=== PATIENT | female | born 1955 | race Caucasian/White ===

== ENCOUNTER 2022-06-23 01:36 | Inpatient (IN) | payer MEDICARE, MEDICAID ==
[~2022-06-23] VITALS: Ht 160 cm; Wt 109.0 kg
[2022-06-23] VITALS (75 sets, daily range): BP systolic 73–210; BP diastolic 47–147
[2022-06-23 01:59] LABS: BASO% 0.3 % (0-3); HEMATOCRIT 49.4 % (37.0-47.0); HEMOGLOBIN 15.5 g/dl (12.0-16.0); IMMATURE GRANULOCYTES 0.3 % (0.0-5.0); LYMPH% 23.5 % (15-41); MEAN CELL VOLUME 90.8 fL CALC (80.0-100.0); MEAN CORPUSCULAR HGB 28.5 pG CALC (26.0-32.0); MEAN CORPUSCULAR HGB CONC 31.4 g/dL CAL (32.0-36.0); MONO% 4.5 % (2-13); NEUT# 10.58 thou/uL (2.00-7.15); NEUT% 71.4 % (42-76); RED BLOOD COUNT 5.44 mill/uL (4.20-5.60); RED CELL DISTRI WIDTH 16.6 % (11.5-15.5)
[2022-06-23 02:16] LABS: ALBUMIN 4.4 g/dL (3.2-5.0); ALKALINE PHOSPHATASE 104 u/l (38-126); ANION GAP 15 (6-22 (CALC)); BILIRUBIN, TOTAL 0.4 mg/dL (0.02-1.3); BUN 38 mg/dL (8-23); BUN/CREATININE RATIO 26 (12-20 (CALC)); CARBON DIOXIDE 26 mmol/l (22-30); CHLORIDE 102 mmol/l (95-108); CREATININE 1.5 mg/dL (0.5-1.0); GFR FOR AFR.AMER. 42 ML/MIN (>=60 (CALC)); GFR OTHER RACES 35 ML/MIN (>=60 (CALC)); POTASSIUM 4.3 mmol/l (3.5-5.1); SGOT/AST 48 u/l (9-36); SODIUM 139 mmol/l (137-146); TOTAL PROTEIN 8.2 g/dL (6.3-8.2)
[2022-06-23] MEDS ORDERED: ATORVASTATIN CA20 MG PO (02:31)
[2022-06-23] MEDS ORDERED: LISINOPRIL20 M1 PO (02:32)
[2022-06-23] MEDS ORDERED: LORTAB 1010 MG PO (02:33)
[2022-06-23] MEDS ORDERED: LEVOTHROID125 MCG PO (02:34)
[2022-06-23 03:49] LABS: URINE BILIRUBIN - DIPSTICK NEGATIVE (NEGATIVE); URINE COLOR YELLOW; URINE GLUCOSE - DIPSTICK NEGATIVE (NEGATIVE); URINE KETONE NEGATIVE (NEGATIVE); URINE PROTEIN - DIPSTICK 30 mg/dL (NEG-TRACE); URINE UROBILINOGEN - DIPSTICK 0.2 E.U./dL (0.2)
[2022-06-23 03:50] LABS: URINE BLOOD DIPSTICK NEGATIVE (NEGATIVE); URINE LEUK ESTERASE MODERATE (NEGATIVE); URINE NITRITE - DIPSTICK POSITIVE (Negative)
[2022-06-23 03:56] LABS: URINE BACTERIA MODERATE hpf; URINE EPITHELIAL CELLS MODERATE EPI/hpf (0-FEW); URINE WBC >100 WBC/hpf (0-5)
[2022-06-24] VITALS (11 sets, daily range): BP systolic 94–145; BP diastolic 47–80
[2022-06-24 05:31] LABS: MEAN CELL VOLUME 91.4 fL CALC (80.0-100.0); MEAN CORPUSCULAR HGB 28.7 pG CALC (26.0-32.0); MEAN CORPUSCULAR HGB CONC 31.4 g/dL CAL (32.0-36.0); RED BLOOD COUNT 4.42 mill/uL (4.20-5.60); RED CELL DISTRI WIDTH 16.5 % (11.5-15.5)
[2022-06-24 05:34] LABS: HEMATOCRIT 40.4 % (37.0-47.0); HEMOGLOBIN 12.7 g/dl (12.0-16.0)
[2022-06-24 05:45] LABS: ALBUMIN 3.6 g/dL (3.2-5.0); ALKALINE PHOSPHATASE 81 u/l (38-126); ANION GAP 12 (6-22 (CALC)); BUN 25 mg/dL (8-23); BUN/CREATININE RATIO 26 (12-20 (CALC)); CARBON DIOXIDE 24 mmol/l (22-30); CHLORIDE 105 mmol/l (95-108); GFR FOR AFR.AMER. > 60 ML/MIN (>=60 (CALC)); GFR OTHER RACES 55 ML/MIN (>=60 (CALC)); MAGNESIUM 2.2 mg/dL (1.6-2.3); POTASSIUM 4.7 mmol/l (3.5-5.1); SGOT/AST 30 u/l (9-36); SODIUM 137 mmol/l (137-146); TOTAL PROTEIN 6.6 g/dL (6.3-8.2)
[2022-06-24] MEDS ORDERED: ZPAK PO (09:47)
[2022-06-24] MEDS ORDERED: MEDDOSEPAK PO (09:47)
[2022-06-24] MEDS ORDERED: VENTOLIN HFA IN (10:03)
== END 2022-06-24 10:30 | disposition home or self-care (01) | DRG 192 ==
LOC: ED 01:36 → ED-I 02:20 → ED 02:49 → ICU 02:50
PROVIDERS: Emergency Medicine; ADMIT Internal Medicine; ATTEND Internal Medicine
PROC: 5A09357 Assistance with Respiratory Ventilation, Less than 24 Consecutive Hours, Continuous Positive Airway Pressure (ICD-10-PCS; principal; 2022-06-23)
DX: J44.1 Chronic obstructive pulmonary disease with (acute) exacerbation (principal); R09.02 Hypoxemia; R06.89 Other abnormalities of breathing; I10 Essential (primary) hypertension; F17.200 Nicotine dependence, unspecified, uncomplicated; Z96.643 Presence of artificial hip joint, bilateral; Z20.822 Contact with and (suspected) exposure to COVID-19
CPT/HCPCS: J1650; Q9967

== ENCOUNTER 2023-03-09 21:46 | Observation (INO) | payer MEDICARE, MEDICAID ==
[~2023-03-09] VITALS: Ht 160 cm; Wt 120.6 kg
[2023-03-09] VITALS (8 sets, daily range): BP systolic 120–161; BP diastolic 59–80
[~2023-03-09 21:46] MED LIST: ATORVASTATIN CA20 MG PO; LEVOTHROID125 MCG PO; LISINOPRIL20 M1 PO; LORTAB 1010 MG PO; MEDDOSEPAK PO; VENTOLIN HFA IN; ZPAK PO
[2023-03-09 22:34] LABS: BASO% 0.4 % (0-3); HEMATOCRIT 45.4 % (37.0-47.0); IMMATURE GRANULOCYTES 0.2 % (0.0-5.0); LYMPH% 27.1 % (15-41); MEAN CELL VOLUME 94.2 fL CALC (80.0-100.0); MEAN CORPUSCULAR HGB CONC 30.8 g/dL CAL (32.0-36.0); MONO% 5.2 % (2-13); NEUT# 6.99 thou/uL (2.00-7.15); NEUT% 67.1 % (42-76); RED BLOOD COUNT 4.82 mill/uL (4.20-5.60); RED CELL DISTRI WIDTH 16.5 % (11.5-15.5)
[2023-03-09 23:08] LABS: D-DIMER 2.05 mg/L (0.19-0.60)
[2023-03-09 23:13] LABS: INTERNATIONAL NORMALIZED RATIO 1.1 RATIO (0.7-1.3); PROTHROMBIN TIME 10.1 SECONDS (9.0-12.5)
[2023-03-09 23:22] LABS: ALBUMIN 3.9 g/dL (3.2-5.0); ALKALINE PHOSPHATASE 98 u/l (38-126); BUN 16 mg/dL (8-23); BUN/CREATININE RATIO 16 (12-20 (CALC)); CHLORIDE 102 mmol/l (95-108); GFR FOR AFR.AMER. > 60 ML/MIN (>=60 (CALC)); GFR OTHER RACES 55 ML/MIN (>=60 (CALC)); POTASSIUM 4.1 mmol/l (3.5-5.1); SGOT/AST 32 u/l (9-36); SODIUM 139 mmol/l (137-146); TOTAL PROTEIN 6.7 g/dL (6.3-8.2)
[2023-03-09 23:26] LABS: ANION GAP 8 (6-22 (CALC)); BILIRUBIN, TOTAL 0.4 mg/dL (0.02-1.3); CARBON DIOXIDE 33 mmol/l (22-30)
[2023-03-10] VITALS (21 sets, daily range): BP systolic 102–133; BP diastolic 41–90
[2023-03-10 02:29] LABS: URINE BILIRUBIN - DIPSTICK Negative (NEGATIVE); URINE BLOOD DIPSTICK Trace-intact (NEGATIVE); URINE GLUCOSE - DIPSTICK Negative (NEGATIVE); URINE KETONE Negative (NEGATIVE); URINE PROTEIN - DIPSTICK Trace mg/dL (NEG-TRACE); URINE SPECIFIC GRAVITY 1.015; URINE UROBILINOGEN - DIPSTICK 0.2 E.U./dL (0.2)
[2023-03-10 02:31] LABS: URINE COLOR Yellow; URINE LEUK ESTERASE Small (NEGATIVE); URINE NITRITE - DIPSTICK Positive (Negative)
[2023-03-10 02:36] LABS: URINE BACTERIA MANY hpf; URINE SQUAMOUS EPITHELIAL CELL FEW EPI/hpf (0-FEW)
[2023-03-10] MEDS ORDERED: LORTAB 1010 MG PO (11:23)
[2023-03-10] MEDS ORDERED: ZITHROMAX250 MG PO (16:01)
[2023-03-10] MEDS ORDERED: OMNICEF300 MG PO (16:01)
[2023-03-10] MEDS ORDERED: PREDNISONE20 MG PO (16:03)
[2023-03-10] MEDS ORDERED: IBUPROFEN600 MG PO (18:16)
== END 2023-03-10 19:00 | disposition home or self-care (01) ==
LOC: ED 21:46 → ED-I 03-10 03:30 → ED 03-10 04:13 → MS2 03-10 04:14
PROVIDERS: Emergency Medicine; ADMIT Student in an Organized Health Care Education/Training Program; ATTEND Student in an Organized Health Care Education/Training Program
DX: J44.1 Chronic obstructive pulmonary disease with (acute) exacerbation (principal); I11.0 Hypertensive heart disease with heart failure; I50.9 Heart failure, unspecified; N39.0 Urinary tract infection, site not specified; I89.0 Lymphedema, not elsewhere classified; I87.8 Other specified disorders of veins; E03.9 Hypothyroidism, unspecified; Z91.128 Patient's intentional underdosing of medication regimen for other reason; F17.200 Nicotine dependence, unspecified, uncomplicated; T50.1X6A Underdosing of loop [high-ceiling] diuretics, initial encounter; Z99.3 Dependence on wheelchair; Z96.643 Presence of artificial hip joint, bilateral; Z20.822 Contact with and (suspected) exposure to COVID-19
CPT/HCPCS: Q9967

== ENCOUNTER 2023-09-09 13:17 | Inpatient (IN) | payer MEDICARE, MEDICAID ==
[~2023-09-09] VITALS: Ht 160 cm; Wt 130.2 kg
[2023-09-09] VITALS (26 sets, daily range): BP systolic 101–198; BP diastolic 58–122
[~2023-09-09 13:17] MED LIST changes: +IBUPROFEN600 MG PO; +OMNICEF300 MG PO; +PREDNISONE20 MG PO; +ZITHROMAX250 MG PO
--- NOTE | 2023-09-09 13:17 | NUR ---
PATIENT TO ER ROOM 13 VIA EMS. MD AT BEDSIDE.
[2023-09-09] MEDS ORDERED: AZITHROMYCIN 500 MG in SODIUM CHLORIDE 0.9% 250 ML IV ONE (13:30)
[2023-09-09] MEDS ORDERED: IPRATROPIUM-Albuterol 0.5MG-2.5MG/3 ML NEB ONE ×2 (13:30)
[2023-09-09] MEDS ORDERED: methylPREDNISolone SODIUM SUCC 125 MG/2 ML SDV IV ONE (13:30)
[2023-09-09] MEDS ORDERED: cefTRIAXone SODIUM 2 GM in SODIUM CHLORIDE 0.9% 100 ML IV ONE (13:30)
[2023-09-09 13:57] LABS: BASO% 0.4 % (0-3); HEMATOCRIT 46.1 % (37.0-47.0); HEMOGLOBIN 13.6 g/dl (12.0-16.0); IMMATURE GRANULOCYTES 0.8 % (0.0-5.0); LYMPH% 23.1 % (15-41); MEAN CORPUSCULAR HGB CONC 29.5 g/dL CAL (32.0-36.0); MONO% 4.5 % (2-13); NEUT# 6.84 thou/uL (2.00-7.15); NEUT% 71.2 % (42-76); RED BLOOD COUNT 4.54 mill/uL (4.20-5.60); RED CELL DISTRI WIDTH 17.1 % (11.5-15.5)
[2023-09-09 13:58] LABS: MEAN CELL VOLUME 101.5 fL CALC (80.0-100.0)
[2023-09-09 14:36] LABS: INTERNATIONAL NORMALIZED RATIO 1.1 RATIO (0.7-1.3)
[2023-09-09 14:37] LABS: ALBUMIN 4.1 g/dL (3.2-5.0); MAGNESIUM 2.5 mg/dL (1.6-2.3); POTASSIUM 4.7 mmol/l (3.5-5.1); TOTAL PROTEIN 7.8 g/dL (6.3-8.2)
[2023-09-09 14:40] LABS: BILIRUBIN, TOTAL 0.6 mg/dL (0.02-1.3)
[2023-09-09 14:45] LABS: PROTHROMBIN TIME 10.4 SECONDS (9.0-12.5)
[2023-09-09 15:25] LABS: URINE BILIRUBIN - DIPSTICK Negative (NEGATIVE); URINE BLOOD DIPSTICK Moderate (NEGATIVE); URINE GLUCOSE - DIPSTICK Negative (NEGATIVE); URINE KETONE Negative (NEGATIVE); URINE LEUK ESTERASE Negative (NEGATIVE); URINE PH 5.5 (4.5-8.0); URINE PROTEIN - DIPSTICK >=300 mg/dL (NEG-TRACE); URINE SPECIFIC GRAVITY >=1.030; URINE UROBILINOGEN - DIPSTICK 0.2 E.U./dL (0.2)
[2023-09-09 15:26] LABS: URINE COLOR Yellow; URINE NITRITE - DIPSTICK Positive (Negative)
[2023-09-09 15:32] LABS: URINE BACTERIA MANY hpf; URINE SQUAMOUS EPITHELIAL CELL FEW EPI/hpf (0-FEW)
[2023-09-09] MEDS ORDERED: SODIUM CHLORIDE 0.9% 1,000 ML IV PRN (15:55)
[2023-09-09] MEDS ORDERED: ACETAMINOPHEN 325 MG/TAB PO PRN (15:55)
[2023-09-09] MEDS ORDERED: MAGNESIUM HYDROXIDE 30 ML UDC PO PRN (15:55)
[2023-09-09] MEDS ORDERED: FUROSEMIDE 40 MG/4 ML SDV IV SCH (15:57)
[2023-09-09] MEDS ORDERED: HYDROcodone 5 MG/Acetaminophen 325 MG/COMBO PO PRN (16:00)
--- NOTE | 2023-09-09 16:00 | NUR ---
PATIENT TRANSFERED TO 15 TO REGULAR BED.
--- NOTE | 2023-09-09 16:00 | NUR ---
PATIENT RECEIVED BY ICU NURSE. MOVED TO ER ROOM 15. SHE IS NOTED ON BIPAP AT THIS TIME. SHE IS A/O X3. VSS AT THIS TIME. SHE WAS GIVEN A COMPLETE BED BATH & LINEN CHANGE. LUNGS DIMINISHED THROUGHOUT. BOWEL SOUNDS ACTIVE IN ALL FOUR QUADS. ANSARCA EDEMA NOTED. ROMY AREA NOTED ESCORIATED; PUREWICK PLACED ON PATIENT. SHE IS UNABLE TO WEAR SCDS AT THIS TIME DUE TO PAIN AND SWELLING IN BLE. HER IV WAS DISLODGED WHILE MOVING TO REGULAR BED. IV CHANGED. SHE ATE 100% OF DINNER. BED LOCKED IN LOW POSITION. CALL LIGHT WITHIN REACH.
[2023-09-09] MEDS ORDERED: ALPRAZolam 0.25 MG PO PRN (17:50)
[2023-09-09] MEDS ORDERED: hydrALAZINE HCL 20 MG/ML VIAL(1 ML) IV PRN (17:50)
--- NOTE | 2023-09-09 18:00 | NUR ---
PATIENT LYING IN BED WITH NO ACUTE DISTRESS NOTED AT THIS TIME.
[2023-09-09] MEDS ORDERED: ALPRAZOLAM0.25 MG PO (18:08)
[2023-09-09] MEDS ORDERED: GABAPENTIN100 MG PO (18:08)
[2023-09-09] MEDS ORDERED: HYDROCHLOROT12.5 M1 PO (18:09)
[2023-09-09] MEDS ORDERED: IPRATROPIUM-Albuterol 0.5MG-2.5MG/3 ML NEB SCH (19:00)
--- NOTE | 2023-09-09 20:00 | NUR ---
PATIENT'S FRIEND MAKAYLA AND HER ROOMMATE CAME TO VISIT. THE PATIENT IS RESTING IN BED ON BIPAP WITH EYES CLOSED. VITAL SIGNS STABLE. FRIEND MAKAYLA IS LISTED EMERGENCY CONTACT AND EXPRESSED CONCERNED ABOUT THE PATIENT RETURNING HOME SHE HAS NOT BEEN ABLE TO CARE FOR HERSELF IN THE PAST FEW MONTHS AND IS EAGER TO SPEAK WITH CASE MANAGEMENT ABOUT HER CONCERNS FOR THE PAITENT'S DISCHARGE NEEDS/PLANNING.
[2023-09-09] MEDS ORDERED: ATORVASTATIN CALCIUM 10 MG/TAB PO SCH (21:00)
[2023-09-09] MEDS ORDERED: ENOXAPARIN SODIUM 40 MG/0.4 ML SYR SC SCH (21:00)
[2023-09-09] MEDS ORDERED: GABAPENTIN 100 MG/CAP PO SCH (21:00)
--- NOTE | 2023-09-09 21:30 | NUR ---
PATIENT BECAME OBTUNDED AND DIFFICULT TO AROUSE. PATIENT'S HEART RATE REPEATEDLY DROPPED INTO THE 30s. ABG WAS DRAWN BY RESPIRATORY THERAPIST AND DR. TRAN WAS CALLED AND NEW ORDERS WERE ENTERED.
[2023-09-09] MEDS ORDERED: ATROPINE SULFATE 0.1 MG/ML 10 ML SYR IV SCH (21:45)
[2023-09-09] MEDS ORDERED: SODIUM CHLORIDE 0.9% 500 ML IV ONE ×2 (21:45→22:25)
[2023-09-09] MEDS ORDERED: ATROPINE SULFATE 0.1 MG/ML 10 ML SYR IV ONE (21:56)
[2023-09-09] MEDS ORDERED: methylPREDNISolone Sod Succ 40 MG/ML SDV IV SCH (22:00)
[2023-09-09] MEDS ORDERED: NALOXONE HCL 0.4 MG/ML 1ML AMP IV SCH (22:00)
[2023-09-09] MEDS ORDERED: NALOXONE HCL 0.4 MG/ML 1ML AMP ONE (22:46)
[2023-09-09] MEDS ORDERED: ONDANSETRON HCl 4 MG/2 ML SDV IV PRN (23:00)
[2023-09-09] MEDS ORDERED: ATROPINE SULFATE 0.1 MG/ML 10 ML SYR IV PRN (23:00)
--- NOTE | 2023-09-09 23:00 | NUR ---
UPDATED DR. TRAN ON PATIENT'S STATUS. DOPAMINE WAS TITRATED TO 2.5MCG/KG/MIN FROM INITIAL DOSE OF 5MCG/KG/MIN DUE TO THE PATIENT BECOMING HYPERTENSIVE AND TACHYCARDIC. DR. TRAN OK WITH DOPAMINE RUNNING AT 2.5MCG/KG/MIN.
--- NOTE | 2023-09-09 23:54 | NUR ---
PATIENT IS NOW ALERT AND ORIENTED ASKING FOR FOOD AND PAIN MEDICATION. THE PATIENT REMAINS ON BIPAP AND DURING MOUTH CARE O2 SATS DROPPED TO 88% FROM 96% INSTANTLY. EDUCATED PATIENT ON IMPORTANCE OF REMAINING NPO WHILE ON BIPAP.
[2023-09-10] VITALS (49 sets, daily range): BP systolic 101–199; BP diastolic 54–143
--- NOTE | 2023-09-10 01:47 | NUR ---
PATIENT RESTING ON BIPAP WITH EYES CLOSED. DOPAMINE TITRATED TO 5MCG/KG/MIN FOR A HEART RATE OF 48.
--- NOTE | 2023-09-10 03:59 | NUR ---
PATIENT NOTED TO HAVE PVCs. 12 LEAD COMPLETED. PATIENT STATES THAT SHE IS HUNGRY AND THIRSTY. RE-EDUCATED ON THE IMPORTANCE OF BIPAP AND THAT REMAINING NPO WHILE WEARING BIPAP TO PROTECT FROM ASPIRATION/A SAFETY MEASURE. ALL OTHER NEEDS MET AT THIS TIME.
[2023-09-10 04:41] LABS: BASO% 0.1 % (0-3); HEMATOCRIT 44.1 % (37.0-47.0); HEMOGLOBIN 13.6 g/dl (12.0-16.0); IMMATURE GRANULOCYTES 1.2 % (0.0-5.0); LYMPH% 8.6 % (15-41); MEAN CELL VOLUME 96.3 fL CALC (80.0-100.0); MEAN CORPUSCULAR HGB 29.7 pG CALC (26.0-32.0); MEAN CORPUSCULAR HGB CONC 30.8 g/dL CAL (32.0-36.0); MONO% 1.6 % (2-13); NEUT# 7.91 thou/uL (2.00-7.15); NEUT% 88.5 % (42-76); RED BLOOD COUNT 4.58 mill/uL (4.20-5.60); RED CELL DISTRI WIDTH 16.8 % (11.5-15.5)
[2023-09-10 04:52] LABS: BILIRUBIN, TOTAL 0.6 mg/dL (0.02-1.3); CHOLESTEROL HDL RATIO 3.2 (<4.4 (CALC)); CREATININE 0.9 mg/dL (0.5-1.0); MAGNESIUM 2.1 mg/dL (1.6-2.3); POTASSIUM 4.5 mmol/l (3.5-5.1); TOTAL PROTEIN 7.3 g/dL (6.3-8.2)
--- NOTE | 2023-09-10 05:54 | NUR ---
PATIENT TAKEN TO CT FOR ORDERED SCAN. BED SCALE ZEROED AND ALL LINENS CHANGED. PATIENT STATES SHE IS FEELING BETTER. VITAL SIGNS STABLE. DOPAMINE INFUSING AT 5MCG/KG/MIN.
[2023-09-10] MEDS ORDERED: LEVOTHYROXINE SODIUM 50 MCG/TAB PO SCH (06:00)
--- NOTE | 2023-09-10 07:30 | NUR ---
Report received from overnight houseperson nurse. Patient is resting in bed, denies any pain. RT took patient off BIPAP and placed on 2L NC. Patient is tolertaing. Dopamine drip running at 2.5 mcg/kg/min for maintain HR greater than 60. Dr Sanchez is at bedside. Purwick in place. All needs addressed. Call light within reach.
[2023-09-10] MEDS ORDERED: LISINOPRIL 20 MG/TAB PO SCH (09:00)
--- NOTE | 2023-09-10 10:00 | NUR ---
PATIENT RESTING IN BED ON 2L, BIPAP ON STANDBY. BLOOD PRESSURE ELEVATED MEDICATED WITH PRN. CARDIAC CONSULT CALLED. NSR ON TELE. DOPAMINE DRIP RUNNING ORDERED. PUREWICK IN PLACE. ALL NEEDS ADDRESSED. CALL LIGHT IN REACH.
--- NOTE | 2023-09-10 12:00 | NUR ---
Patient moved to ICU room 1. Patient is A&Ox4, on 2L NC and tolerating. BIPAP on standby. Dopamine drip running at 5mcg/min/kg to maintain HR greater than 60. Currently NSR on tele. Purwick in place. Plan for repeat ABG and echo today. All needs addressed. Call light within reach, bed alarm on.
[2023-09-10] MEDS ORDERED: AZITHROMYCIN 500 MG in SODIUM CHLORIDE 0.9% 250 ML IV SCH (13:00)
[2023-09-10] MEDS ORDERED: cefTRIAXone SODIUM 2 GM in SODIUM CHLORIDE 0.9% 100 ML IV SCH (13:00)
--- NOTE | 2023-09-10 14:00 | NUR ---
PATIENT SITTIG UP IN BED. PATIENT FRIEND AT BEDSIDE. NO DISTRESS NOTED. ON 2L NASAL CANULA, BIPAP ON STANDBY. DOPAMINE DRIP RUNNING AT 5 MCG/MIN/KG. NSR ON TELE. PUREWICK IN PLACE. ALL NEEDS ADDRESSED. CALL LIGHT IN REACH. VSS.
--- NOTE | 2023-09-10 16:00 | NUR ---
PATIENT LAYING DOWN IN BED. ECHO BEING DONE AT BEDSIDE. ON 2L NC, BIPAP ON STANDBY. DOPAMINE DRIP RUNNING AT 5MCG/MIN/KG. PUREWICK IN PLACE. CALL LIGHT IN REACH. VSS.
--- NOTE | 2023-09-10 18:00 | NUR ---
PATIENT STATUS UNCHANGED. FAMILY AT BEDSIDE. ALL NEEDS MET. CALL LIGHT IN REACH. VSS.
--- NOTE | 2023-09-10 20:00 | NUR ---
pt assessed , pursed lip breathing , pt states she always brathes like this. sats 92-94 on 2L , humidity added to pts nasal canula pt was commenting on a dry nose. ,Pt bathed compeletely legs with red thick skin and dirt on feet and ankles looks like cellulitis pt states she does not have cellulitis , legs red and swollen edematous. Cardiology did video visit with pt and was shown pts legs. new orders to dv the dopamine and lasix ordere for midnight. pt did her own oral care teeth brushed and mouthwash used in preparation of AVAPS tonight with bipap mask. per md order in coordinattion with RT. Pt had a detailed complete bed bath including wahing legs and feet well with chlorhexidine scrub and rinsing thoroughly. rest of body washed with the hospital body wash. . pt participated in bath and washed her arm pit bilaterally when given the washe cloth. new gowna dn full new linnens and new pure wick.
[2023-09-10] MEDS ORDERED: ATORVASTATIN CALCIUM 20 MG/TAB PO SCH (21:00)
--- NOTE | 2023-09-10 22:00 | NUR ---
pt rounded on given a snack of sugar free jello. exra pillows and blankets supplied for comfort. call romero within reach daily wieght done with only bottom sheet and 1 pillow on the bed wt recorded as 287.0 pounds in kilos.pt reports wanting to keep purse in bed. pt educated not to take any meds other than what we are giving pt. pt stated RNs took her meds on day shift and gave them to pharmacy.
[2023-09-11] VITALS (20 sets, daily range): BP systolic 95–137; BP diastolic 48–82
--- NOTE | 2023-09-11 | NUR ---
pt given midnight dose of IV lasix RT to start AVAPS and pt reports ready to sleep. purewick in place will closeloy monitor output. pt reports being comfortable no pain . all needs met. heels elevated on a pillow bilateral arms elevated on pillows. bed alarm on , pt has call romero. resting comfortbaly.
--- NOTE | 2023-09-11 01:28 | NUR ---
rounded on pt emptied purewick cannister and recorded in I and O for 675 clear yellow. pt on AVAPS resting comfortably.
--- NOTE | 2023-09-11 02:00 | NUR ---
pt rounded on sleeping well. resting comfortably on the BIPP / AVAPS setting , SB, no signs or symptoms of distress. afebrile , warm pink and well perfused. call romero and all pts items within reach. all monitors and alarms on.
--- NOTE | 2023-09-11 04:00 | NUR ---
pt assessed , afebrile. on BIPAP machine AVAPS, sats 100% HR 62 115/55 resting comfortably, urine emptied purewick for 250 of clear yellow. labs drawn by lab , call romero within reach , all monitors and alarms on all needs met.
[2023-09-11 04:57] LABS: BASO% 0.2 % (0-3); HEMATOCRIT 37.7 % (37.0-47.0); HEMOGLOBIN 11.8 g/dl (12.0-16.0); IMMATURE GRANULOCYTES 0.4 % (0.0-5.0); LYMPH% 12.9 % (15-41); MEAN CELL VOLUME 97.2 fL CALC (80.0-100.0); MEAN CORPUSCULAR HGB 30.4 pG CALC (26.0-32.0); MEAN CORPUSCULAR HGB CONC 31.3 g/dL CAL (32.0-36.0); MONO% 2.7 % (2-13); NEUT# 8.38 thou/uL (2.00-7.15); NEUT% 83.8 % (42-76); RED BLOOD COUNT 3.88 mill/uL (4.20-5.60); RED CELL DISTRI WIDTH 16.3 % (11.5-15.5)
[2023-09-11 05:27] LABS: ALBUMIN 3.4 g/dL (3.2-5.0); CREATININE 1.1 mg/dL (0.5-1.0); MAGNESIUM 2.1 mg/dL (1.6-2.3); POTASSIUM 4.6 mmol/l (3.5-5.1); TOTAL PROTEIN 6.1 g/dL (6.3-8.2)
[2023-09-11 05:28] LABS: BILIRUBIN, TOTAL 0.3 mg/dL (0.02-1.3)
--- NOTE | 2023-09-11 06:38 | NUR ---
pt off BIAP at 0632, meds given , water given , pt stayed on BIAPA AVAPS all night, awake ALOX4, call romero within reach all needs met. RT at bedside at 0638. monitors on , all safety measures in place. NSR HR 61 all needs met.
--- NOTE | 2023-09-11 07:10 | NUR ---
PT LAYING IN BED RESTING WITH EYES CLOSED, AROUSES EASILY TO VERBAL STIMULI. PT IS VERY TALKATIVE, A&O X 3, PUPILS PERRL, ABD DISTENDED AND SOFT, ACTIVE BOWEL SOUNDS, LUNG SOUNDS DIMINISHED WITH EXPIRATORY WHEEZES, +3 BILAT LE EDEMA, SAFETY MEASURES REINFORCED, CALL NARAYANAN WITHIN REACH
[2023-09-11] MEDS ORDERED: LEVOTHYROXIN50 MCG PO (07:13)
--- NOTE | 2023-09-11 07:18 | NUR ---
DR GONZALEZ AT BEDSIDE DISCUSSING PLAN OF CARE, PT IS VERY ARGUMENTATIVE WITH MD ABOUT DIAGNOSIS AND TREATMENT PLAN
--- NOTE | 2023-09-11 08:44 | NUR ---
PHYSICAL THERAPY AT BEDSIDE TALKING TO PT
--- NOTE | 2023-09-11 09:00 | NUR ---
PT ASSISTED TO THE BSC AND BACK TO BED WITH 1 PERSON STAND BY ASSISTANCE, PT AMBULATED WITH AN UNSTEADY GAIT, PT WAS ABLE TO SWING HER LEGS BACK IN BED WITH NO ASSISTANCE WHILE NURSE WAS BEDSIDE, PT TOLERATED WELL
--- NOTE | 2023-09-11 09:20 | NUR ---
OT AT BEDSIDE TALKING TO PT
--- NOTE | 2023-09-11 10:45 | NUR ---
PT LAYING IN BED WATCHING TV, DENIES ANY NEEDS AT THIS TIME, PT REMINDED TO CALL FOR ASSISTANCES, CALL NARAYANAN WITHIN REACH
--- NOTE | 2023-09-11 11:45 | NUR ---
SETUP ASSISTANCE PROVIDED WITH LUNCH TRAY
--- NOTE | 2023-09-11 12:17 | NUR ---
CASE MANAGEMENT AT BEDSIDE TALKING TO PT ABOUT DISCHARGE PLANNING
--- NOTE | 2023-09-11 13:45 | NUR ---
PT RESTING WITH EYES CLOSED, AROUSES EASILY TO VERBAL STIMULI, PT REMINDED TO CALL FOR ASSISTANCE, CALL NARAYANAN WITHIN REACH
[2023-09-11] MEDS ORDERED: FUROSEMIDE 40 MG/4 ML SDV IV SCH ×2 (14:00)
--- NOTE | 2023-09-11 15:15 | NUR ---
RT AT BEDSIDE GIVEN PT A BREATHING TREATMENT, PT TOLERATING WELL
--- NOTE | 2023-09-11 16:00 | NUR ---
DIETARY AT BEDSIDE TO TAKE MEAL ORDERS FOR TOMORROW, PT REQUESTING DOUBLE AND TRIPLE PORTIONS AT MEAL TIMES,IT WAS EXPLAINED TO HER THAT SHE CAN NOT HAVE MULTIPLE PORTIONS, PT IS NOT HAPPY BEING TOLD SHE CAN NOT HAVE MULTIPLE PORTIONS
--- NOTE | 2023-09-11 20:00 | NUR ---
Pt assessed, educated on importance of ot smoking , pt states she will continue to smoke, educated on COPD and importance of taking medications such as synthroid and following up with PCP, pt states her PCP is in [place] and cannot get there. Pts roomate and friend stopped in . Friend stated outside pts room , that she filed a report with D[employer] for pt. this RN listened. the woman who is pt's person to call incase of an emergency sated she had concerns about pt being able to care foe herself, This RN stated to her she can call casemanagement tomorrowq and share this with the RN in charge of pt's case. The woman stated she had already spoken to the MD chester for this pt upon admission. pt then asked this RN what the friend asked the RN. and If I gave out medical info including discharge poteneital date. As per pt's request on previous shift, this RN did not give any HIPPA protected info to the friend who is pt's medical contact in case of emergency as listed in the chart. only how she can report any info to the caseworker intake by calling the hospital and asking for the caseworker intake in charge of this pt. pt was cleaned with a prtial yolanda bath. new purewick and given evening medications. pt educated on all meds. call romero within reach all monitors on , NSR, sats 92. no shortness of breath.
--- NOTE | 2023-09-11 22:00 | NUR ---
pt resting comfortably. on monitor sats 90-92. NSR. call romero within reach all personal items within reach.
[2023-09-12] VITALS (14 sets, daily range): BP systolic 106–192; BP diastolic 58–102
--- NOTE | 2023-09-12 | NUR ---
pt asseseed on 1 l multiple ips to 75% with HR mid 40s, pt awaken easily put in high fowlers, enouraged to take a deep breath. RT consulted. who stopped by to see pt and review sats and oxygen requirement.
--- NOTE | 2023-09-12 02:00 | NUR ---
pt on 2L must be woken up and reminded to take a deep brath pt awakens quickly and come u to 92 sats dip to 78-82. HR SB
--- NOTE | 2023-09-12 04:00 | NUR ---
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 pt resting comfortably in Flowlers position with legs slightly elevated and arms on pillows , IV intact. no distress. all needs met at this time.
--- NOTE | 2023-09-12 04:35 | NUR ---
inspecting pts water pitche she drank 2 more cups of water , water po entered in I and O pt given another pitcher of ice water and encouraged , drinking as needed, reinforced to call for the bathroom as earlier. and to call for any needs. with isobutylene operator chief. will baltr closely
[2023-09-12 04:52] LABS: HEMATOCRIT 39.6 % (37.0-47.0); HEMOGLOBIN 12.3 g/dl (12.0-16.0); MEAN CORPUSCULAR HGB 30.4 pG CALC (26.0-32.0); MEAN CORPUSCULAR HGB CONC 31.1 g/dL CAL (32.0-36.0); RED BLOOD COUNT 4.04 mill/uL (4.20-5.60); RED CELL DISTRI WIDTH 16.9 % (11.5-15.5)
[2023-09-12 05:07] LABS: ALBUMIN 3.7 g/dL (3.2-5.0); BILIRUBIN, TOTAL 0.3 mg/dL (0.02-1.3); MAGNESIUM 2.3 mg/dL (1.6-2.3); POTASSIUM 4.5 mmol/l (3.5-5.1); TOTAL PROTEIN 6.7 g/dL (6.3-8.2)
--- NOTE | 2023-09-12 06:34 | NUR ---
pt medicated with am meds synthroid . alox4, 2L NC. all monitors on , pt states she wants to sleep more. call romero within reach .
--- NOTE | 2023-09-12 07:30 | NUR ---
Report received from [facility]. Patient is resting in bed, denies any pain. Dr Soto and case management at bedside. Patient is on 2L NC due to desaturating overnight. VS WNL, NSR on tele monitor. Purwick in place. Plan for patient to discharge today.
[2023-09-12] MEDS ORDERED: PREDNISONE10 MG PO (07:39)
[2023-09-12] MEDS ORDERED: LEXAPRO10 MG PO (07:40)
[2023-09-12] MEDS ORDERED: LASIX 40 MG TAB40 MG PO (07:43)
[2023-09-12] MEDS ORDERED: OMNICEF300 MG PO (07:44)
[2023-09-12] MEDS ORDERED: LORTAB 1010 MG PO (07:44)
--- NOTE | 2023-09-12 10:00 | NUR ---
Patient is resting in bed, helped her change gown and get cleaned up. On 2L NC and tolerating, A&Ox4. Patient has been cleared for discharge, just waiting on someone to come pick her up. VS WNL, NSR on tele monitor. Helped patient pack up her belongings. All needs addressed. Call light within reach.
--- NOTE | 2023-09-12 12:00 | NUR ---
Patient is resting in bed, denies any pain. On 2L NC. Purwick in place, VS WNL, NSR on tele monitor. Patient eating lunch and is waiting on a ride home. All needs addressed, call light within reach.
--- NOTE | 2023-09-12 13:00 | NUR ---
Patient had 2 home medications that were sent to pharmacy upon admission. Medications retrieved from pharmacy and given to patient.
--- NOTE | 2023-09-12 14:00 | NUR ---
Patient is resting in bed, denies any pain. Speaking with [employer] desk representative. Case management working on getting patient a ride home. Patient is on 2L NC. VS WNL. NSR on tele monitor. All needs addressed at this time. Call light within reach.
--- NOTE | 2023-09-12 16:00 | NUR ---
Patient is resting in bed, denies any pain. On 2L NC. VS WNL, NSR on tele monitor. Patient is awaiting ride from medical transport. ETA is 1630. All needs addressed at this time. Call light within reach.
--- NOTE | 2023-09-12 17:30 | NUR ---
Transport here to take patient home. Discharge instructions reviewed with patient and questions answered. IV's removed. Patient left with portable home oxygen.
== END 2023-09-12 17:30 | disposition home or self-care (01) | DRG 193 ==
LOC: ED 13:17 → ED-I 14:15 → ED 14:15 → ED-I 15:33 → ED 15:48 → ICU 15:49 → ED-I 15:49 → ICU 09-10 12:15
PROVIDERS: Family Medicine; Internal Medicine; ADMIT Student in an Organized Health Care Education/Training Program; ATTEND Student in an Organized Health Care Education/Training Program
PROC: 5A09457 Assistance with Respiratory Ventilation, 24-96 Consecutive Hours, Continuous Positive Airway Pressure (ICD-10-PCS; principal; 2023-09-09)
DX: J18.9 Pneumonia, unspecified organism (principal); J96.01 Acute respiratory failure with hypoxia; J96.02 Acute respiratory failure with hypercapnia; J44.1 Chronic obstructive pulmonary disease with (acute) exacerbation; E87.29 Other acidosis; Z68.43 Body mass index [BMI] 50.0-59.9, adult; N30.00 Acute cystitis without hematuria; J44.0 Chronic obstructive pulmonary disease with (acute) lower respiratory infection; I11.0 Hypertensive heart disease with heart failure; I50.9 Heart failure, unspecified; R00.1 Bradycardia, unspecified; I87.2 Venous insufficiency (chronic) (peripheral); E78.5 Hyperlipidemia, unspecified; E03.9 Hypothyroidism, unspecified; E66.9 Obesity, unspecified; I89.0 Lymphedema, not elsewhere classified; F17.210 Nicotine dependence, cigarettes, uncomplicated; B96.20 Unspecified Escherichia coli [E. coli] as the cause of diseases classified elsewhere; T50.2X6A Underdosing of carbonic-anhydrase inhibitors, benzothiadiazides and other diuretics, initial encounter; T38.1X6A Underdosing of thyroid hormones and substitutes, initial encounter; Z91.128 Patient's intentional underdosing of medication regimen for other reason; Z99.3 Dependence on wheelchair; Z59.19 Other inadequate housing; Z96.643 Presence of artificial hip joint, bilateral; Z20.822 Contact with and (suspected) exposure to COVID-19
CPT/HCPCS: J1650

== ENCOUNTER 2023-10-27 17:04 | Inpatient (IN) | payer MEDICARE, MEDICAID ==
[2023-10-27] VITALS (25 sets, daily range): BP systolic 38–155; BP diastolic 20–125
[~2023-10-27] VITALS: Ht 160 cm; Wt 119.0 kg
[~2023-10-27 17:04] MED LIST changes: +ALPRAZOLAM0.25 MG PO; +GABAPENTIN100 MG PO; +HYDROCHLOROT12.5 M1 PO; +LASIX 40 MG TAB40 MG PO; +LEVOTHYROXIN50 MCG PO; +LEXAPRO10 MG PO; +PREDNISONE10 MG PO
[2023-10-27] MEDS ORDERED: CEFEPIME HYDROCHLORIDE 2 GM in SODIUM CHLORIDE 0.9% 100 ML IV ONE (17:15)
[2023-10-27] MEDS ORDERED: IPRATROPIUM-Albuterol 0.5MG-2.5MG/3 ML NEB ONE ×2 (17:15)
[2023-10-27] MEDS ORDERED: MORPHINE SULFATE 4 MG/ML VIAL IV ONE (17:15)
[2023-10-27] MEDS ORDERED: ONDANSETRON HCl 4 MG/2 ML SDV IV ONE (17:15)
[2023-10-27] MEDS ORDERED: methylPREDNISolone SODIUM SUCC 125 MG/2 ML SDV IV ONE (17:15)
[2023-10-27] MEDS ORDERED: VANCOMYCIN HCL 1 GM in SODIUM CHLORIDE 0.9% 250 ML IV ONE (17:15)
[2023-10-27] MEDS ORDERED: SODIUM CHLORIDE 0.9% 1,000 ML IV ONE ×2 (17:15→19:15)
[2023-10-27 18:06] LABS: BASO% 0.2 % (0-3); HEMATOCRIT 43.6 % (37.0-47.0); HEMOGLOBIN 13.4 g/dl (12.0-16.0); IMMATURE GRANULOCYTES 0.5 % (0.0-5.0); LYMPH% 9.1 % (15-41); MEAN CELL VOLUME 92.8 fL CALC (80.0-100.0); MEAN CORPUSCULAR HGB 28.5 pG CALC (26.0-32.0); MEAN CORPUSCULAR HGB CONC 30.7 g/dL CAL (32.0-36.0); MONO% 5.2 % (2-13); NEUT# 10.88 thou/uL (2.00-7.15); RED BLOOD COUNT 4.7 mill/uL (4.20-5.60); RED CELL DISTRI WIDTH 17.4 % (11.5-15.5)
[2023-10-27 18:12] LABS: ALBUMIN 3.9 g/dL (3.2-5.0); ALKALINE PHOSPHATASE 97 u/l (38-126); ANION GAP 11 (6-22 (CALC)); CARBON DIOXIDE 31 mmol/l (22-30); CHLORIDE 101 mmol/l (95-108); CPK 616 u/l (30-135); CREATININE 1.7 mg/dL (0.5-1.0); ESTIMATED GFR 32 ML/MIN (>=90 (CALC)); MAGNESIUM 2.5 mg/dL (1.6-2.3); POTASSIUM 4.9 mmol/l (3.5-5.1); SODIUM 138 mmol/l (137-146); TOTAL PROTEIN 7.2 g/dL (6.3-8.2)
[2023-10-27 18:24] LABS: BILIRUBIN, TOTAL 0.7 mg/dL (0.02-1.3); BUN 93 mg/dL (8-23); BUN/CREATININE RATIO 55 (12-20 (CALC)); SGOT/AST 41 u/l (9-36)
[2023-10-27] MEDS ORDERED: SODIUM CHLORIDE 0.9% 500 ML IV ONE (18:30)
[2023-10-27] MEDS ORDERED: NOREPINEPHRINE BITARTRATE 4 MG in DEXTROSE 5% 250 ML IV ONE (18:30)
[2023-10-27 18:47] LABS: TSH, 3RD GENERATION 40.7 uIU/mL (0.47 - 4.68)
[2023-10-27 19:30] LABS: URINE BILIRUBIN - DIPSTICK Negative (NEGATIVE); URINE BLOOD DIPSTICK Moderate (NEGATIVE); URINE GLUCOSE - DIPSTICK Negative (NEGATIVE); URINE KETONE Negative (NEGATIVE); URINE LEUK ESTERASE Negative (NEGATIVE); URINE NITRITE - DIPSTICK Negative (Negative); URINE PH 5.5 (4.5-8.0); URINE PROTEIN - DIPSTICK 100 mg/dL (NEG-TRACE); URINE UROBILINOGEN - DIPSTICK 0.2 E.U./dL (0.2)
[2023-10-27 19:32] LABS: URINE COLOR Yellow
[2023-10-27 19:40] LABS: URINE CASTS FEW lpf (NONE-RARE); URINE RBC 0-2 RBC/hpf (0-5); URINE SQUAMOUS EPITHELIAL CELL MODERATE EPI/hpf (0-FEW)
[2023-10-27] MEDS ORDERED: LEVOTHYROXINE SODIUM 200 MCG VIAL IV ONE (20:10)
[2023-10-27] MEDS ORDERED: NALOXONE HCL 1 MG/ML SYR ONE (21:55)
[2023-10-27] MEDS ORDERED: IBUPROFEN 800 MG/TAB PO PRN (22:45)
[2023-10-27] MEDS ORDERED: ONDANSETRON HCl 4 MG/2 ML SDV IV PRN (22:45)
[2023-10-27] MEDS ORDERED: ENOXAPARIN SODIUM 40 MG/0.4 ML SYR SC ONE (22:45)
[2023-10-27] MEDS ORDERED: SODIUM CHLORIDE 0.9% 1,000 ML IV PRN (22:45)
[2023-10-27] MEDS ORDERED: ALUM & MAG HYDROX-SIMETHICONE 30 ML PO PRN (22:45)
[2023-10-27] MEDS ORDERED: ONDANSETRON 4 MG/TAB ODT PO PRN (22:45)
[2023-10-27] MEDS ORDERED: FAMOTIDINE 10MG/ML 2ML SDV IV PRN (22:45)
[2023-10-27] MEDS ORDERED: Polyethylene Glycol 3350 17 GM/PKT PO PRN (22:45)
[2023-10-27] MEDS ORDERED: ASPIRIN 81 MG/TAB PO SCH (22:48)
[2023-10-27] MEDS ORDERED: LORazepam 2 MG/ML IV ONE (23:15)
[2023-10-27] MEDS ORDERED: LORazepam 2 MG/ML IV PRN (23:15)
[2023-10-28] VITALS (77 sets, daily range): BP systolic 98–156; BP diastolic 46–93
[2023-10-28] MEDS ORDERED: SODIUM CHLORIDE 0.9% 0 ML IV ONE ×2 (00:48→13:49)
[2023-10-28] MEDS ORDERED: LEVOTHYROXINE SODIUM 200 MCG VIAL IV SCH ×2 (01:10→08:00)
[2023-10-28] MEDS ORDERED: ETOMIDATE 20 MG/10 ML SDV IV SCH (03:10)
[2023-10-28] MEDS ORDERED: PROPOFOL 100 ML IV ONE (03:10)
[2023-10-28] MEDS ORDERED: ROCURONIUM BROMIDE 10 MG/ML 5ML VIAL IV SCH (03:10)
[2023-10-28] MEDS ORDERED: PROPOFOL 100 ML IV PRN (03:15)
[2023-10-28] MEDS ORDERED: DEXTROSE 5% / 0.9% NACL 1,000 ML IV PRN (05:25)
[2023-10-28] MEDS ORDERED: HYDROCORTISONE SODIUM SUCCINAT 100 MG VIAL IV SCH ×4 (06:00→22:30)
[2023-10-28 06:07] LABS: BASO% 0.1 % (0-3); IMMATURE GRANULOCYTES 0.9 % (0.0-5.0); LYMPH% 4.4 % (15-41); MEAN CELL VOLUME 93.8 fL CALC (80.0-100.0); MEAN CORPUSCULAR HGB 29.6 pG CALC (26.0-32.0); MEAN CORPUSCULAR HGB CONC 31.5 g/dL CAL (32.0-36.0); MONO% 1.3 % (2-13); NEUT# 9.63 thou/uL (2.00-7.15); NEUT% 93.3 % (42-76); RED BLOOD COUNT 3.72 mill/uL (4.20-5.60); RED CELL DISTRI WIDTH 17.1 % (11.5-15.5)
[2023-10-28 06:15] LABS: CHOLESTEROL HDL RATIO 3.1 (<4.4 (CALC)); CREATININE 1.2 mg/dL (0.5-1.0); POTASSIUM 4.6 mmol/l (3.5-5.1)
[2023-10-28 06:17] LABS: HEMATOCRIT 34.9 % (37.0-47.0)
[2023-10-28] MEDS ORDERED: IPRATROPIUM-Albuterol 0.5MG-2.5MG/3 ML NEB SCH (08:00)
[2023-10-28] MEDS ORDERED: CEFEPIME HYDROCHLORIDE 1 GM in SODIUM CHLORIDE 0.9% 50 ML IV SCH (09:00)
[2023-10-28] MEDS ORDERED: Pantoprazole Sodium 40 MG VIAL (Protonix) IV SCH (09:00)
[2023-10-28] MEDS ORDERED: MORPHINE SULFATE 4 MG/ML VIAL IV PRN (09:20)
[2023-10-28] MEDS ORDERED: NOREPINEPHRINE BITARTRATE 4 MG in DEXTROSE 5% 250 ML IV PRN (09:25)
[2023-10-28] MEDS ORDERED: SODIUM CHLORIDE 0.9% 500 ML IV ONE (09:25)
[2023-10-28] MEDS ORDERED: CEFEPIME HYDROCHLORIDE 2 GM in SODIUM CHLORIDE 0.9% 100 ML IV SCH (10:00)
[2023-10-28 11:52] LABS: HEMATOCRIT 36.8 % (37.0-47.0); HEMOGLOBIN 11.2 g/dl (12.0-16.0)
[2023-10-28] MEDS ORDERED: VANCOMYCIN HCL 1 GM in SODIUM CHLORIDE 0.9% 250 ML IV SCH ×2 (14:00)
[2023-10-28] MEDS ORDERED: [UNRECOGNIZED DRUG - OTHER] IV SCH (22:30)
[2023-10-29] VITALS (46 sets, daily range): BP systolic 106–174; BP diastolic 54–91
[2023-10-29 05:12] LABS: BASO% 0.1 % (0-3); IMMATURE GRANULOCYTES 0.7 % (0.0-5.0); LYMPH% 17.2 % (15-41); MEAN CELL VOLUME 93.6 fL CALC (80.0-100.0); MEAN CORPUSCULAR HGB 29.2 pG CALC (26.0-32.0); MEAN CORPUSCULAR HGB CONC 31.3 g/dL CAL (32.0-36.0); MONO% 5.6 % (2-13); NEUT# 8.2 thou/uL (2.00-7.15); NEUT% 76.4 % (42-76); RED BLOOD COUNT 3.42 mill/uL (4.20-5.60); RED CELL DISTRI WIDTH 17.1 % (11.5-15.5)
[2023-10-29 05:36] LABS: CHOLESTEROL HDL RATIO 3.2 (<4.4 (CALC)); CREATININE 0.9 mg/dL (0.5-1.0); MAGNESIUM 2.4 mg/dL (1.6-2.3); POTASSIUM 3.8 mmol/l (3.5-5.1)
[2023-10-29 05:43] LABS: ALBUMIN 2.7 g/dL (3.2-5.0); BILIRUBIN, TOTAL 0.2 mg/dL (0.02-1.3); TOTAL PROTEIN 5.3 g/dL (6.3-8.2)
[2023-10-29] MEDS ORDERED: LEVOTHYROXINE SODIUM 200 MCG VIAL IV SCH (06:00)
[2023-10-29] MEDS ORDERED: LEVOTHYROXINE SODIUM 100 MCG TAB PO SCH (06:00)
[2023-10-29] MEDS ORDERED: LEVOTHYROXINE SODIUM 100 MCG IV SCH (08:00)
[2023-10-29] MEDS ORDERED: HYDROCORTISONE SODIUM SUCCINAT 100 MG VIAL IV SCH ×2 (08:00→14:00)
[2023-10-29] MEDS ORDERED: cefTRIAXone SODIUM 2 GM in SODIUM CHLORIDE 0.9% 100 ML IV SCH (17:00)
[2023-10-30] VITALS (41 sets, daily range): BP systolic 71–165; BP diastolic 43–86
[2023-10-30 05:19] LABS: BASO% 0.1 % (0-3); HEMATOCRIT 32.5 % (37.0-47.0); HEMOGLOBIN 10.1 g/dl (12.0-16.0); IMMATURE GRANULOCYTES 1.2 % (0.0-5.0); LYMPH% 12.6 % (15-41); MEAN CELL VOLUME 94.2 fL CALC (80.0-100.0); MEAN CORPUSCULAR HGB 29.3 pG CALC (26.0-32.0); MEAN CORPUSCULAR HGB CONC 31.1 g/dL CAL (32.0-36.0); MONO% 4.5 % (2-13); NEUT% 81.6 % (42-76); RED BLOOD COUNT 3.45 mill/uL (4.20-5.60); RED CELL DISTRI WIDTH 17.2 % (11.5-15.5)
[2023-10-30 05:32] LABS: ALBUMIN 2.6 g/dL (3.2-5.0); BILIRUBIN, TOTAL 0.2 mg/dL (0.02-1.3); CREATININE 0.8 mg/dL (0.5-1.0); MAGNESIUM 2.3 mg/dL (1.6-2.3); POTASSIUM 3.8 mmol/l (3.5-5.1); TOTAL PROTEIN 5.2 g/dL (6.3-8.2)
[2023-10-30] MEDS ORDERED: [UNRECOGNIZED DRUG - OTHER] ONE (05:54)
[2023-10-30] MEDS ORDERED: LEVOTHYROXINE SODIUM 200 MCG VIAL IV SCH (06:00)
[2023-10-30] MEDS ORDERED: LEVOTHYROXINE SODIUM 100 MCG IV SCH (06:00)
[2023-10-30] MEDS ORDERED: METOPROLOL TARTRATE 5 MG/5 ML VIAL IV SCH (09:30)
[2023-10-30] MEDS ORDERED: ADENOSINE 6MG (3 MG/ML) SYR IV SCH (09:30)
[2023-10-30 10:00] LABS: BASO% 0.2 % (0-3); HEMOGLOBIN 11.1 g/dl (12.0-16.0); IMMATURE GRANULOCYTES 2.3 % (0.0-5.0); LYMPH% 9.8 % (15-41); MEAN CELL VOLUME 95.2 fL CALC (80.0-100.0); MEAN CORPUSCULAR HGB 29.4 pG CALC (26.0-32.0); MEAN CORPUSCULAR HGB CONC 30.8 g/dL CAL (32.0-36.0); NEUT# 7.64 thou/uL (2.00-7.15); NEUT% 82.7 % (42-76); RED BLOOD COUNT 3.78 mill/uL (4.20-5.60); RED CELL DISTRI WIDTH 17.1 % (11.5-15.5)
[2023-10-30] MEDS ORDERED: FUROSEMIDE 40 MG/4 ML SDV IV SCH (10:00)
[2023-10-30] MEDS ORDERED: LORazepam 2 MG/ML IV SCH (10:00)
[2023-10-30] MEDS ORDERED: VANCOMYCIN HCL 750 MG in SODIUM CHLORIDE 0.9% 235 ML IV SCH (15:00)
[2023-10-30] MEDS ORDERED: Pantoprazole Sodium 40 MG VIAL (Protonix) IV SCH (21:00)
== END 2023-10-30 13:38 | disposition short-term general hospital (02) | DRG 80 ==
LOC: ED 17:04 → ED-I 22:29 → ED 22:46 → ICU 22:47
PROVIDERS: Family Medicine; ADMIT Student in an Organized Health Care Education/Training Program; ATTEND Student in an Organized Health Care Education/Training Program
PROC: 05HM33Z Insertion of Infusion Device into Right Internal Jugular Vein, Percutaneous Approach (ICD-10-PCS; principal; 2023-10-27)
PROC: 3E043XZ Introduction of Vasopressor into Central Vein, Percutaneous Approach (ICD-10-PCS; 2023-10-27)
PROC: 0BH17EZ Insertion of Endotracheal Airway into Trachea, Via Natural or Artificial Opening (ICD-10-PCS; 2023-10-28)
PROC: 5A1945Z Respiratory Ventilation, 24-96 Consecutive Hours (ICD-10-PCS; 2023-10-28)
PROC: 0T9B70Z Drainage of Bladder with Drainage Device, Via Natural or Artificial Opening (ICD-10-PCS; 2023-10-28)
DX: E03.5 Myxedema coma (principal); G93.41 Metabolic encephalopathy; J18.9 Pneumonia, unspecified organism; J96.01 Acute respiratory failure with hypoxia; J96.02 Acute respiratory failure with hypercapnia; N17.9 Acute kidney failure, unspecified; L03.116 Cellulitis of left lower limb; Z68.42 Body mass index [BMI] 45.0-49.9, adult; J44.0 Chronic obstructive pulmonary disease with (acute) lower respiratory infection; M62.82 Rhabdomyolysis; I47.10 Supraventricular tachycardia, unspecified; K92.0 Hematemesis; B96.4 Proteus (mirabilis) (morganii) as the cause of diseases classified elsewhere; E03.9 Hypothyroidism, unspecified; I95.9 Hypotension, unspecified; E86.0 Dehydration; I11.0 Hypertensive heart disease with heart failure; I50.9 Heart failure, unspecified; E86.9 Volume depletion, unspecified; E66.01 Morbid (severe) obesity due to excess calories; D35.02 Benign neoplasm of left adrenal gland; I89.0 Lymphedema, not elsewhere classified; I87.8 Other specified disorders of veins; S00.12XA Contusion of left eyelid and periocular area, initial encounter; T38.1X6A Underdosing of thyroid hormones and substitutes, initial encounter; Z91.128 Patient's intentional underdosing of medication regimen for other reason; W19.XXXA Unspecified fall, initial encounter; Y92.009 Unspecified place in unspecified non-institutional (private) residence as the place of occurrence of the external cause; Z99.3 Dependence on wheelchair; Z72.0 Tobacco use; Z96.643 Presence of artificial hip joint, bilateral; Z20.822 Contact with and (suspected) exposure to COVID-19
CPT/HCPCS: J0692; J1650; J2060; J2470; J3370

== ENCOUNTER 2024-02-13 20:35 | Inpatient (IN) | payer MEDICARE ==
[~2024-02-13] VITALS: Ht 160 cm; Wt 117.6 kg
[2024-02-13 21:59] VITALS: BP 88/40
[2024-02-13 22:01] VITALS: BP 71/35
[2024-02-13] MEDS ORDERED: LORazepam 2 MG/ML IV ONE (22:15)
[2024-02-13] MEDS ORDERED: KETOROLAC TROMETHAMINE 15 MG/ML SDV IV ONE (22:15)
[2024-02-13] MEDS ORDERED: DICYCLOMINE HCL 20 MG/2 ML VIAL IM ONE (22:15)
[2024-02-13] MEDS ORDERED: DIATRIZOATE MEGLUMINE & SODIUM 30 ML/BTL PO ONE (22:30)
[2024-02-13 22:42] LABS: BASO% 0.5 % (0-3); HEMATOCRIT 37.9 % (37.0-47.0); HEMOGLOBIN 11.2 g/dl (12.0-16.0); IMMATURE GRANULOCYTES 0.3 % (0.0-5.0); LYMPH% 18.5 % (15-41); MEAN CELL VOLUME 95.9 fL CALC (80.0-100.0); MEAN CORPUSCULAR HGB 28.4 pG CALC (26.0-32.0); MEAN CORPUSCULAR HGB CONC 29.6 g/dL CAL (32.0-36.0); MONO% 6.7 % (2-13); NEUT# 7.3 thou/uL (2.00-7.15); RED BLOOD COUNT 3.95 mill/uL (4.20-5.60); RED CELL DISTRI WIDTH 16.8 % (11.5-15.5)
[2024-02-13 22:59] LABS: CREATININE 1.5 mg/dL (0.5-1.0)
[2024-02-13 23:01] VITALS: BP 103/57
[2024-02-13 23:05] LABS: ALBUMIN 3.9 g/dL (3.2-5.0); BILIRUBIN, TOTAL 0.4 mg/dL (0.02-1.3); TOTAL PROTEIN 7.6 g/dL (6.3-8.2)
[2024-02-14] VITALS (11 sets, daily range): BP systolic 101–158; BP diastolic 40–82
[2024-02-14] MEDS ORDERED: [UNRECOGNIZED DRUG - OTHER] (05:35)
[2024-02-14] MEDS ORDERED: IBUPROFEN 800 MG/TAB PO PRN (05:45)
[2024-02-14] MEDS ORDERED: SODIUM CHLORIDE 0.45% 1,000 ML IV PRN (05:45)
[2024-02-14] MEDS ORDERED: ONDANSETRON 4 MG/TAB ODT PO PRN (05:45)
[2024-02-14] MEDS ORDERED: ALUM & MAG HYDROX-SIMETHICONE 30 ML PO PRN (05:45)
[2024-02-14] MEDS ORDERED: Polyethylene Glycol 3350 17 GM/PKT PO PRN (05:45)
[2024-02-14] MEDS ORDERED: ONDANSETRON HCl 4 MG/2 ML SDV IV PRN (05:45)
[2024-02-14] MEDS ORDERED: FAMOTIDINE 10MG/ML 2ML SDV IV PRN (05:45)
[2024-02-14] MEDS ORDERED: IPRATROPIUM-Albuterol 0.5MG-2.5MG/3 ML NEB PRN (07:50)
[2024-02-14] MEDS ORDERED: methylPREDNISolone Sod Succ 40 MG/ML SDV IV SCH (13:00)
[2024-02-14] MEDS ORDERED: FUROSEMIDE 40 MG/4 ML SDV IV SCH (14:00)
[2024-02-14] MEDS ORDERED: AZITHROMYCIN 500 MG in SODIUM CHLORIDE 0.9% 250 ML IV SCH (14:00)
[2024-02-14] MEDS ORDERED: GABAPENTIN 100 MG/CAP PO SCH (15:00)
[2024-02-14] MEDS ORDERED: ATORVASTATIN CALCIUM 20 MG/TAB PO SCH (21:00)
[2024-02-15] VITALS: BP 125/64
[2024-02-15 01:00] VITALS: BP 116/63
[2024-02-15 02:01] VITALS: BP 120/66
[2024-02-15] MEDS ORDERED: LEVOTHYROXINE SODIUM 75 MCG/TAB PO SCH (06:00)
[2024-02-15] MEDS ORDERED: HYDROcodone/Acetaminophen 1 COMBO TAB PO PRN (07:20)
[2024-02-15 08:03] VITALS: BP 153/57
[2024-02-15 08:40] LABS: BASO% 0.4 % (0-3); HEMATOCRIT 35.4 % (37.0-47.0); HEMOGLOBIN 10.4 g/dl (12.0-16.0); IMMATURE GRANULOCYTES 0.3 % (0.0-5.0); LYMPH% 17.8 % (15-41); MEAN CELL VOLUME 94.7 fL CALC (80.0-100.0); MEAN CORPUSCULAR HGB 27.8 pG CALC (26.0-32.0); MEAN CORPUSCULAR HGB CONC 29.4 g/dL CAL (32.0-36.0); MONO% 4.8 % (2-13); NEUT# 6.95 thou/uL (2.00-7.15); NEUT% 76.7 % (42-76); RED BLOOD COUNT 3.74 mill/uL (4.20-5.60); RED CELL DISTRI WIDTH 16.3 % (11.5-15.5)
[2024-02-15 08:56] LABS: ALBUMIN 3.5 g/dL (3.2-5.0); BILIRUBIN, TOTAL 0.4 mg/dL (0.02-1.3); CREATININE 0.8 mg/dL (0.5-1.0); MAGNESIUM 2.4 mg/dL (1.6-2.3); POTASSIUM 4.7 mmol/l (3.5-5.1); TOTAL PROTEIN 6.6 g/dL (6.3-8.2)
[2024-02-15] MEDS ORDERED: LISINOPRIL 20 MG/TAB PO SCH (09:00)
[2024-02-15] MEDS ORDERED: GABAPENTIN 300 MG/CAP PO SCH (09:30)
== END 2024-02-15 11:07 | disposition left against medical advice (07) | DRG 190 ==
LOC: ED 20:35 → ED-I 22:42 → ED 22:42 → ED-I 02-14 05:06 → ED 02-14 05:47 → MS2 02-14 05:48 → ICU 02-14 12:44 → MS2 02-14 12:44 → ICU 02-14 12:45
PROVIDERS: Internal Medicine; ADMIT Internal Medicine; ATTEND Internal Medicine
PROC: 5A09357 Assistance with Respiratory Ventilation, Less than 24 Consecutive Hours, Continuous Positive Airway Pressure (ICD-10-PCS; principal; 2024-02-14)
DX: J44.1 Chronic obstructive pulmonary disease with (acute) exacerbation (principal); J96.21 Acute and chronic respiratory failure with hypoxia; J96.22 Acute and chronic respiratory failure with hypercapnia; N17.9 Acute kidney failure, unspecified; K62.5 Hemorrhage of anus and rectum; I11.0 Hypertensive heart disease with heart failure; I50.9 Heart failure, unspecified; R62.7 Adult failure to thrive; E03.9 Hypothyroidism, unspecified; K64.9 Unspecified hemorrhoids; E66.01 Morbid (severe) obesity due to excess calories; Z91.128 Patient's intentional underdosing of medication regimen for other reason; T38.1X6A Underdosing of thyroid hormones and substitutes, initial encounter; T41.5X6A Underdosing of therapeutic gases, initial encounter; Z99.3 Dependence on wheelchair; Z99.81 Dependence on supplemental oxygen; Z72.0 Tobacco use
CPT/HCPCS: J0456; J0500; J0696; J1885; J1940; J2060; Q9967

== ENCOUNTER 2024-03-04 13:18 | Inpatient (IN) | payer MEDICARE ==
[2024-03-04] VITALS (8 sets, daily range): BP systolic 127–187; BP diastolic 52–91
[~2024-03-04] VITALS: Ht 160 cm; Wt 118.6 kg
[~2024-03-04 13:18] MED LIST changes: +[UNRECOGNIZED DRUG - OTHER]
[2024-03-04] MEDS ORDERED: methylPREDNISolone SODIUM SUCC 125 MG/2 ML SDV IV ONE (13:25)
[2024-03-04] MEDS ORDERED: IPRATROPIUM-Albuterol 0.5MG-2.5MG/3 ML NEB ONE ×3 (13:25)
[2024-03-04 13:44] LABS: BASO% 0.5 % (0-3); EOS% 0.2 % (0-8); HEMATOCRIT 46.2 % (37.0-47.0); HEMOGLOBIN 13.9 g/dl (12.0-16.0); LYMPH% 24.8 % (15-41); MEAN CELL VOLUME 92.2 fL CALC (80.0-100.0); MEAN CORPUSCULAR HGB 27.7 pG CALC (26.0-32.0); MEAN CORPUSCULAR HGB CONC 30.1 g/dL CAL (32.0-36.0); MONO% 5.3 % (2-13); NEUT# 4.6 thou/uL (2.00-7.15); NEUT% 69.2 % (42-76); RED BLOOD COUNT 5.01 mill/uL (4.20-5.60)
[2024-03-04 13:59] LABS: PROTHROMBIN TIME 10.8 SECONDS (9.0-12.5)
[2024-03-04 14:05] LABS: ALBUMIN 4.2 g/dL (3.2-5.0); ALKALINE PHOSPHATASE 93 u/l (38-126); ANION GAP 10 (6-22 (CALC)); CARBON DIOXIDE 32 mmol/l (22-30); CHLORIDE 102 mmol/l (95-108); SGOT/AST 31 u/l (9-36); SODIUM 140 mmol/l (137-146); TOTAL PROTEIN 7.7 g/dL (6.3-8.2)
[2024-03-04 14:09] LABS: BUN 12 mg/dL (8-23); BUN/CREATININE RATIO 13 (12-20 (CALC)); CREATININE 0.9 mg/dL (0.5-1.0); ESTIMATED GFR 69 ML/MIN (>=90 (CALC))
[2024-03-04 14:14] LABS: BILIRUBIN, TOTAL 0.7 mg/dL (0.02-1.3)
[2024-03-04] MEDS ORDERED: FUROSEMIDE 40 MG/4 ML SDV IV ONE (15:35)
[2024-03-04] MEDS ORDERED: MAGNESIUM HYDROXIDE 30 ML UDC PO PRN (15:55)
[2024-03-04] MEDS ORDERED: ACETAMINOPHEN 325 MG/TAB PO PRN (15:55)
[2024-03-04] MEDS ORDERED: IPRATROPIUM-Albuterol 0.5MG-2.5MG/3 ML NEB PRN (15:55)
[2024-03-04] MEDS ORDERED: FUROSEMIDE 40 MG/4 ML SDV IV SCH (21:00)
[2024-03-04] MEDS ORDERED: ATORVASTATIN CALCIUM 20 MG/TAB PO SCH (21:00)
[2024-03-04] MEDS ORDERED: GABAPENTIN 300 MG/CAP PO SCH (21:00)
[2024-03-04] MEDS ORDERED: methylPREDNISolone Sod Succ 40 MG/ML SDV IV SCH (21:00)
[2024-03-04] MEDS ORDERED: ENOXAPARIN SODIUM 40 MG/0.4 ML SYR SC SCH (21:00)
[2024-03-05] VITALS: BP 139/63
[2024-03-05 05:22] VITALS: BP 110/58
[2024-03-05 06:00] LABS: BASO% 0.1 % (0-3); HEMOGLOBIN 12.7 g/dl (12.0-16.0); IMMATURE GRANULOCYTES 0.6 % (0.0-5.0); LYMPH% 10.3 % (15-41); MEAN CELL VOLUME 94.6 fL CALC (80.0-100.0); MEAN CORPUSCULAR HGB 28.6 pG CALC (26.0-32.0); MEAN CORPUSCULAR HGB CONC 30.2 g/dL CAL (32.0-36.0); MONO% 0.8 % (2-13); NEUT# 6.31 thou/uL (2.00-7.15); NEUT% 88.2 % (42-76); RED BLOOD COUNT 4.44 mill/uL (4.20-5.60); RED CELL DISTRI WIDTH 16.9 % (11.5-15.5)
[2024-03-05 06:17] LABS: ALBUMIN 3.5 g/dL (3.2-5.0); CREATININE 0.9 mg/dL (0.5-1.0); MAGNESIUM 2.1 mg/dL (1.6-2.3); POTASSIUM 4.5 mmol/l (3.5-5.1); TOTAL PROTEIN 6.7 g/dL (6.3-8.2)
[2024-03-05 06:18] LABS: BILIRUBIN, TOTAL 0.4 mg/dL (0.02-1.3)
[2024-03-05 08:39] VITALS: BP 120/48
[2024-03-05] MEDS ORDERED: LISINOPRIL 20 MG/TAB PO SCH (09:00)
[2024-03-05 12:15] VITALS: BP 98/37
[2024-03-05] MEDS ORDERED: IPRATROPIUM-Albuterol 0.5MG-2.5MG/3 ML NEB SCH (15:00)
[2024-03-05 18:30] VITALS: BP 127/48
[2024-03-05] MEDS ORDERED: HYDROcodone/Acetaminophen 1 COMBO TAB PO PRN (21:20)
[2024-03-06] VITALS (8 sets, daily range): BP systolic 117–156; BP diastolic 42–66
[2024-03-06 06:08] LABS: BASO% 0.3 % (0-3); HEMATOCRIT 39.4 % (37.0-47.0); HEMOGLOBIN 11.5 g/dl (12.0-16.0); IMMATURE GRANULOCYTES 0.5 % (0.0-5.0); LYMPH% 11.2 % (15-41); MEAN CELL VOLUME 97.3 fL CALC (80.0-100.0); MEAN CORPUSCULAR HGB 28.4 pG CALC (26.0-32.0); MEAN CORPUSCULAR HGB CONC 29.2 g/dL CAL (32.0-36.0); MONO% 2.1 % (2-13); NEUT# 8.49 thou/uL (2.00-7.15); NEUT% 85.9 % (42-76); RED BLOOD COUNT 4.05 mill/uL (4.20-5.60); RED CELL DISTRI WIDTH 16.9 % (11.5-15.5)
[2024-03-06 06:15] LABS: ALBUMIN 3.7 g/dL (3.2-5.0); BILIRUBIN, TOTAL 0.3 mg/dL (0.02-1.3); CREATININE 1.2 mg/dL (0.5-1.0); MAGNESIUM 2.2 mg/dL (1.6-2.3); POTASSIUM 4.3 mmol/l (3.5-5.1); TOTAL PROTEIN 6.6 g/dL (6.3-8.2)
[2024-03-07 00:19] VITALS: BP 120/43
[2024-03-07 04:08] VITALS: BP 102/46
[2024-03-07 05:47] LABS: BASO% 0.2 % (0-3); HEMATOCRIT 38.1 % (37.0-47.0); HEMOGLOBIN 11.2 g/dl (12.0-16.0); IMMATURE GRANULOCYTES 0.5 % (0.0-5.0); MEAN CELL VOLUME 97.2 fL CALC (80.0-100.0); MEAN CORPUSCULAR HGB 28.6 pG CALC (26.0-32.0); MEAN CORPUSCULAR HGB CONC 29.4 g/dL CAL (32.0-36.0); MONO% 7.1 % (2-13); NEUT# 6.36 thou/uL (2.00-7.15); NEUT% 63.2 % (42-76); RED BLOOD COUNT 3.92 mill/uL (4.20-5.60); RED CELL DISTRI WIDTH 17.2 % (11.5-15.5)
[2024-03-07 05:58] LABS: ALBUMIN 3.5 g/dL (3.2-5.0); BILIRUBIN, TOTAL 0.3 mg/dL (0.02-1.3); MAGNESIUM 2.2 mg/dL (1.6-2.3); POTASSIUM 4.3 mmol/l (3.5-5.1); TOTAL PROTEIN 6.3 g/dL (6.3-8.2)
[2024-03-07] MEDS ORDERED: LEVOTHYROXINE SODIUM 50 MCG/TAB PO SCH (06:00)
[2024-03-07 07:22] VITALS: BP 117/56
[2024-03-07] MEDS ORDERED: predniSONE 20 MG/TAB PO SCH (09:00)
[2024-03-07] MEDS ORDERED: FUROSEMIDE 40 MG/4 ML SDV IV SCH (09:00)
[2024-03-07] MEDS ORDERED: OMNICEF300 MG PO (10:59)
[2024-03-07] MEDS ORDERED: LASIX 40 MG TAB40 MG PO (10:59)
[2024-03-07] MEDS ORDERED: PREDNISONE10 MG PO (11:00)
[2024-03-07 11:13] VITALS: BP 107/66
[2024-03-07] MEDS ORDERED: LORTAB 1010 MG PO (13:03)
[2024-03-07] MEDS ORDERED: LEVOTHYROXIN50 MC1 PO (13:08)
== END 2024-03-07 14:36 | DRG 190 ==
LOC: ED 13:18 → ED-I 15:36 → ED 15:37 → MS2 15:37
PROVIDERS: Emergency Medicine; Nurse Practitioner Family; ADMIT Internal Medicine; ATTEND Internal Medicine
DX: J44.1 Chronic obstructive pulmonary disease with (acute) exacerbation (principal); I50.33 Acute on chronic diastolic (congestive) heart failure; J96.21 Acute and chronic respiratory failure with hypoxia; J96.22 Acute and chronic respiratory failure with hypercapnia; Z68.41 Body mass index [BMI] 40.0-44.9, adult; I13.0 Hypertensive heart and chronic kidney disease with heart failure and stage 1 through stage 4 chronic kidney disease, or unspecified chronic kidney disease; E66.2 Morbid (severe) obesity with alveolar hypoventilation; N18.9 Chronic kidney disease, unspecified; E03.9 Hypothyroidism, unspecified; F41.9 Anxiety disorder, unspecified; I87.8 Other specified disorders of veins; F17.200 Nicotine dependence, unspecified, uncomplicated; T38.1X6A Underdosing of thyroid hormones and substitutes, initial encounter; T41.5X6A Underdosing of therapeutic gases, initial encounter; Z79.891 Long term (current) use of opiate analgesic; Z91.128 Patient's intentional underdosing of medication regimen for other reason; Z99.81 Dependence on supplemental oxygen; Z20.822 Contact with and (suspected) exposure to COVID-19
CPT/HCPCS: J0696; J1650; J1940

== ENCOUNTER 2024-04-02 18:40 | Inpatient (IN) | payer MEDICARE ==
[~2024-04-02] VITALS: Ht 152.4 cm; Wt 129.1 kg
[~2024-04-02 18:40] MED LIST changes: +LEVOTHYROXIN50 MC1 PO
[2024-04-02 19:01] VITALS: BP 117/99
[2024-04-02 20:00] LABS: BASO% 0.4 % (0-3); IMMATURE GRANULOCYTES 0.1 % (0.0-5.0); LYMPH% 16.5 % (15-41); MEAN CELL VOLUME 95.3 fL CALC (80.0-100.0); MEAN CORPUSCULAR HGB 27.2 pG CALC (26.0-32.0); MEAN CORPUSCULAR HGB CONC 28.5 g/dL CAL (32.0-36.0); MONO% 4.7 % (2-13); NEUT# 5.27 thou/uL (2.00-7.15); NEUT% 78.3 % (42-76); RED BLOOD COUNT 4.86 mill/uL (4.20-5.60); RED CELL DISTRI WIDTH 17.9 % (11.5-15.5)
[2024-04-02 20:02] LABS: HEMOGLOBIN 13.2 g/dl (12.0-16.0)
[2024-04-02 20:03] LABS: HEMATOCRIT 46.3 % (37.0-47.0)
[2024-04-02 20:13] LABS: ALBUMIN 3.6 g/dL (3.2-5.0); ALKALINE PHOSPHATASE 65 u/l (38-126); ANION GAP 6 (6-22 (CALC)); BILIRUBIN, TOTAL 0.4 mg/dL (0.02-1.3); BUN 17 mg/dL (8-23); BUN/CREATININE RATIO 17 (12-20 (CALC)); CARBON DIOXIDE 36 mmol/l (22-30); CHLORIDE 100 mmol/l (95-108); ESTIMATED GFR 61 ML/MIN (>=90 (CALC)); POTASSIUM 4.3 mmol/l (3.5-5.1); SGOT/AST 36 u/l (9-36); SODIUM 138 mmol/l (137-146); TOTAL PROTEIN 6.7 g/dL (6.3-8.2)
[2024-04-02 20:45] LABS: PROTHROMBIN TIME 11.1 SECONDS (9.0-12.5)
[2024-04-02] MEDS ORDERED: Polyethylene Glycol 3350 17 GM/PKT PO PRN (21:35)
[2024-04-02] MEDS ORDERED: IBUPROFEN 800 MG/TAB PO PRN (21:35)
[2024-04-02] MEDS ORDERED: ONDANSETRON 4 MG/TAB ODT PO PRN (21:35)
[2024-04-02] MEDS ORDERED: ALUM & MAG HYDROX-SIMETHICONE 30 ML PO PRN (21:35)
[2024-04-02] MEDS ORDERED: FAMOTIDINE 10MG/ML 2ML SDV IV PRN (21:35)
[2024-04-02] MEDS ORDERED: ONDANSETRON HCl 4 MG/2 ML SDV IV PRN (21:35)
[2024-04-02] MEDS ORDERED: ACETAMINOPHEN 325 MG/TAB PO PRN (22:45)
[2024-04-02] MEDS ORDERED: HYDROcodone/Acetaminophen 1 COMBO TAB PO PRN (22:45)
[2024-04-02] MEDS ORDERED: MAGNESIUM HYDROXIDE 30 ML UDC PO PRN (22:45)
[2024-04-02] MEDS ORDERED: GABAPENTIN 300 MG/CAP PO SCH (23:10)
[2024-04-02 23:48] VITALS: BP 107/49
[2024-04-03] VITALS (18 sets, daily range): BP systolic 55–119; BP diastolic 34–76
[2024-04-03] MEDS ORDERED: IPRATROPIUM-Albuterol 0.5MG-2.5MG/3 ML ONE (03:11)
[2024-04-03 04:11] LABS: BASO% 0.6 % (0-3); HEMATOCRIT 45.2 % (37.0-47.0); HEMOGLOBIN 12.8 g/dl (12.0-16.0); IMMATURE GRANULOCYTES 0.3 % (0.0-5.0); LYMPH% 16.6 % (15-41); MEAN CELL VOLUME 96.6 fL CALC (80.0-100.0); MEAN CORPUSCULAR HGB 27.4 pG CALC (26.0-32.0); MEAN CORPUSCULAR HGB CONC 28.3 g/dL CAL (32.0-36.0); MONO% 5.3 % (2-13); NEUT# 6.1 thou/uL (2.00-7.15); NEUT% 77.2 % (42-76); RED BLOOD COUNT 4.68 mill/uL (4.20-5.60); RED CELL DISTRI WIDTH 18.1 % (11.5-15.5)
[2024-04-03 04:15] LABS: ALBUMIN 3.3 g/dL (3.2-5.0); BILIRUBIN, TOTAL 0.4 mg/dL (0.02-1.3); CREATININE 0.9 mg/dL (0.5-1.0); MAGNESIUM 2.3 mg/dL (1.6-2.3); POTASSIUM 4.2 mmol/l (3.5-5.1)
[2024-04-03] MEDS ORDERED: LEVOTHYROXINE SODIUM 50 MCG/TAB PO SCH (06:00)
[2024-04-03] MEDS ORDERED: IPRATROPIUM-Albuterol 0.5MG-2.5MG/3 ML NEB SCH (07:00)
[2024-04-03] MEDS ORDERED: LISINOPRIL 20 MG/TAB PO SCH (09:00)
[2024-04-03] MEDS ORDERED: FUROSEMIDE 40 MG/TAB PO SCH (09:00)
[2024-04-03] MEDS ORDERED: IPRATROPIUM-Albuterol 0.5MG-2.5MG/3 ML NEB PRN (13:15)
[2024-04-03] MEDS ORDERED: LEVOTHYROXINE SODIUM 200 MCG VIAL IV SCH (19:29)
[2024-04-03] MEDS ORDERED: methylPREDNISolone Sod Succ 40 MG/ML SDV IV SCH (19:30)
[2024-04-03] MEDS ORDERED: ENOXAPARIN SODIUM 40 MG/0.4 ML SYR SC SCH (21:00)
[2024-04-03] MEDS ORDERED: ATORVASTATIN CALCIUM 20 MG/TAB PO SCH (21:00)
[2024-04-04] VITALS (34 sets, daily range): BP systolic 84–210; BP diastolic 41–172
[2024-04-04 05:48] LABS: HEMATOCRIT 45.6 % (37.0-47.0); MEAN CELL VOLUME 97.6 fL CALC (80.0-100.0); MEAN CORPUSCULAR HGB 27.8 pG CALC (26.0-32.0); MEAN CORPUSCULAR HGB CONC 28.5 g/dL CAL (32.0-36.0); RED BLOOD COUNT 4.67 mill/uL (4.20-5.60); RED CELL DISTRI WIDTH 18.2 % (11.5-15.5)
[2024-04-04] MEDS ORDERED: LEVOTHYROXINE SODIUM 50 MCG/TAB PO SCH (06:00)
[2024-04-04 06:17] LABS: ALBUMIN 3.3 g/dL (3.2-5.0); BILIRUBIN, TOTAL 0.4 mg/dL (0.02-1.3); CREATININE 1.1 mg/dL (0.5-1.0); MAGNESIUM 2.3 mg/dL (1.6-2.3); POTASSIUM 4.7 mmol/l (3.5-5.1); TOTAL PROTEIN 6.1 g/dL (6.3-8.2)
[2024-04-04 07:33] LABS: URINE BILIRUBIN - DIPSTICK Negative (NEGATIVE); URINE BLOOD DIPSTICK Trace-intact (NEGATIVE); URINE GLUCOSE - DIPSTICK Negative (NEGATIVE); URINE KETONE Negative (NEGATIVE); URINE PH 5.5 (4.5-8.0); URINE PROTEIN - DIPSTICK 30 mg/dL (NEG-TRACE); URINE SPECIFIC GRAVITY 1.025; URINE UROBILINOGEN - DIPSTICK 0.2 E.U./dL (0.2)
[2024-04-04 07:34] LABS: URINE COLOR Yellow; URINE NITRITE - DIPSTICK Positive (Negative)
[2024-04-04 07:35] LABS: URINE LEUK ESTERASE Negative (NEGATIVE)
[2024-04-04 07:42] LABS: URINE BACTERIA MODERATE hpf; URINE EPITHELIAL CELLS RARE EPI/hpf (0-FEW)
[2024-04-04] MEDS ORDERED: methylPREDNISolone Sod Succ 40 MG/ML SDV IV SCH (21:00)
[2024-04-05] VITALS (16 sets, daily range): BP systolic 90–153; BP diastolic 45–134
[2024-04-05 05:36] LABS: ALBUMIN 3.4 g/dL (3.2-5.0); BILIRUBIN, TOTAL 0.3 mg/dL (0.02-1.3); CREATININE 1.2 mg/dL (0.5-1.0); MAGNESIUM 2.3 mg/dL (1.6-2.3); POTASSIUM 4.8 mmol/l (3.5-5.1); TOTAL PROTEIN 6.4 g/dL (6.3-8.2)
[2024-04-05 05:44] LABS: HEMATOCRIT 46.3 % (37.0-47.0); HEMOGLOBIN 12.9 g/dl (12.0-16.0); MEAN CELL VOLUME 100.7 fL CALC (80.0-100.0); MEAN CORPUSCULAR HGB CONC 27.9 g/dL CAL (32.0-36.0); RED BLOOD COUNT 4.6 mill/uL (4.20-5.60); RED CELL DISTRI WIDTH 18.2 % (11.5-15.5)
[2024-04-05] MEDS ORDERED: CEFEPIME HYDROCHLORIDE 2 GM in SODIUM CHLORIDE 0.9% 100 ML IV SCH (09:00)
[2024-04-05] MEDS ORDERED: PANTOPRAZOLE SODIUM Sesquihydr 40 MG/TAB PO SCH (09:00)
[2024-04-06] VITALS (17 sets, daily range): BP systolic 45–166; BP diastolic 26–141
[2024-04-06 05:37] LABS: BASO% 0.1 % (0-3); HEMATOCRIT 42.9 % (37.0-47.0); HEMOGLOBIN 12.4 g/dl (12.0-16.0); IMMATURE GRANULOCYTES 1.5 % (0.0-5.0); LYMPH% 17.4 % (15-41); MEAN CELL VOLUME 96.6 fL CALC (80.0-100.0); MEAN CORPUSCULAR HGB 27.9 pG CALC (26.0-32.0); MEAN CORPUSCULAR HGB CONC 28.9 g/dL CAL (32.0-36.0); MONO% 2.7 % (2-13); NEUT# 5.77 thou/uL (2.00-7.15); NEUT% 78.3 % (42-76); RED BLOOD COUNT 4.44 mill/uL (4.20-5.60); RED CELL DISTRI WIDTH 17.9 % (11.5-15.5)
[2024-04-06 06:02] LABS: ALBUMIN 3.6 g/dL (3.2-5.0); BILIRUBIN, TOTAL 0.3 mg/dL (0.02-1.3); CREATININE 1.3 mg/dL (0.5-1.0); MAGNESIUM 2.2 mg/dL (1.6-2.3); POTASSIUM 4.9 mmol/l (3.5-5.1); TOTAL PROTEIN 6.7 g/dL (6.3-8.2)
[2024-04-06] MEDS ORDERED: Meropenem 1 GM in SODIUM CHLORIDE 0.9% 100 ML IV SCH (09:00)
[2024-04-06] MEDS ORDERED: FUROSEMIDE 40 MG/4 ML SDV IV SCH (09:00)
[2024-04-07] VITALS (12 sets, daily range): BP systolic 103–154; BP diastolic 60–104
[2024-04-07 05:21] LABS: BASO% 0.1 % (0-3); HEMATOCRIT 47.7 % (37.0-47.0); HEMOGLOBIN 13.5 g/dl (12.0-16.0); IMMATURE GRANULOCYTES 1.6 % (0.0-5.0); LYMPH% 22.1 % (15-41); MEAN CORPUSCULAR HGB 27.4 pG CALC (26.0-32.0); MEAN CORPUSCULAR HGB CONC 28.3 g/dL CAL (32.0-36.0); MONO% 4.1 % (2-13); NEUT# 6.45 thou/uL (2.00-7.15); NEUT% 72.1 % (42-76); RED BLOOD COUNT 4.92 mill/uL (4.20-5.60); RED CELL DISTRI WIDTH 18.2 % (11.5-15.5)
[2024-04-07 05:43] LABS: ALBUMIN 3.9 g/dL (3.2-5.0); CREATININE 1.1 mg/dL (0.5-1.0); MAGNESIUM 2.3 mg/dL (1.6-2.3); POTASSIUM 4.6 mmol/l (3.5-5.1); TOTAL PROTEIN 7.1 g/dL (6.3-8.2)
[2024-04-07 05:54] LABS: BILIRUBIN, TOTAL 0.5 mg/dL (0.02-1.3)
[2024-04-08] VITALS (16 sets, daily range): BP systolic 114–157; BP diastolic 57–75
[2024-04-08 07:55] LABS: BASO% 0.1 % (0-3); HEMATOCRIT 44.2 % (37.0-47.0); HEMOGLOBIN 12.9 g/dl (12.0-16.0); IMMATURE GRANULOCYTES 1.1 % (0.0-5.0); LYMPH% 21.5 % (15-41); MEAN CELL VOLUME 94.4 fL CALC (80.0-100.0); MEAN CORPUSCULAR HGB 27.6 pG CALC (26.0-32.0); MEAN CORPUSCULAR HGB CONC 29.2 g/dL CAL (32.0-36.0); MONO% 6.1 % (2-13); NEUT# 5.15 thou/uL (2.00-7.15); NEUT% 71.2 % (42-76); RED BLOOD COUNT 4.68 mill/uL (4.20-5.60)
[2024-04-08 08:10] LABS: ALBUMIN 3.7 g/dL (3.2-5.0); BILIRUBIN, TOTAL 0.5 mg/dL (0.02-1.3); POTASSIUM 4.5 mmol/l (3.5-5.1); TOTAL PROTEIN 6.6 g/dL (6.3-8.2)
[2024-04-08] MEDS ORDERED: predniSONE 20 MG/TAB PO SCH (09:30)
[2024-04-09 00:01] VITALS: BP 146/79
[2024-04-09 01:00] VITALS: BP 132/72
[2024-04-09 05:51] LABS: HEMATOCRIT 42.4 % (37.0-47.0); HEMOGLOBIN 12.4 g/dl (12.0-16.0); MEAN CELL VOLUME 94.6 fL CALC (80.0-100.0); MEAN CORPUSCULAR HGB 27.7 pG CALC (26.0-32.0); MEAN CORPUSCULAR HGB CONC 29.2 g/dL CAL (32.0-36.0); RED BLOOD COUNT 4.48 mill/uL (4.20-5.60); RED CELL DISTRI WIDTH 17.7 % (11.5-15.5)
[2024-04-09 06:10] LABS: ALBUMIN 3.6 g/dL (3.2-5.0); BILIRUBIN, TOTAL 0.5 mg/dL (0.02-1.3); CREATININE 0.9 mg/dL (0.5-1.0); MAGNESIUM 2.4 mg/dL (1.6-2.3); POTASSIUM 4.4 mmol/l (3.5-5.1); TOTAL PROTEIN 6.3 g/dL (6.3-8.2)
[2024-04-09] MEDS ORDERED: PREDNISONE10 MG PO (12:28)
[2024-04-09] MEDS ORDERED: ERTAPENEM1 G1 IV (12:39)
[2024-04-09] MEDS ORDERED: LEVOTHYROXIN175 MC1 PO (12:43)
[2024-04-09] MEDS ORDERED: ERTAPENEM 1 GM in SODIUM CHLORIDE 0.9% 50 ML IV SCH (13:00)
== END 2024-04-09 17:00 | DRG 189 ==
LOC: ED 18:40 → ED-I 21:20 → ED 21:34 → ICU 21:35
PROVIDERS: Family Medicine; Internal Medicine; Nurse Practitioner; ADMIT Internal Medicine; ATTEND Internal Medicine
PROC: 5A09357 Assistance with Respiratory Ventilation, Less than 24 Consecutive Hours, Continuous Positive Airway Pressure (ICD-10-PCS; principal; 2024-04-03)
DX: J96.21 Acute and chronic respiratory failure with hypoxia (principal); J44.1 Chronic obstructive pulmonary disease with (acute) exacerbation; Z68.43 Body mass index [BMI] 50.0-59.9, adult; E87.29 Other acidosis; N39.0 Urinary tract infection, site not specified; Z16.12 Extended spectrum beta lactamase (ESBL) resistance; J96.22 Acute and chronic respiratory failure with hypercapnia; I50.9 Heart failure, unspecified; R62.7 Adult failure to thrive; B96.20 Unspecified Escherichia coli [E. coli] as the cause of diseases classified elsewhere; E03.9 Hypothyroidism, unspecified; E83.39 Other disorders of phosphorus metabolism; R00.1 Bradycardia, unspecified; I95.9 Hypotension, unspecified; I89.0 Lymphedema, not elsewhere classified; N18.9 Chronic kidney disease, unspecified; E66.01 Morbid (severe) obesity due to excess calories; F17.200 Nicotine dependence, unspecified, uncomplicated; Z99.3 Dependence on wheelchair; Z99.81 Dependence on supplemental oxygen; T38.1X6A Underdosing of thyroid hormones and substitutes, initial encounter; Z91.128 Patient's intentional underdosing of medication regimen for other reason; Z91.199 Patient's noncompliance with other medical treatment and regimen due to unspecified reason
CPT/HCPCS: J0692; J1335; J1650; J1940